=== PATIENT | female | born 1965 | race Caucasian/White ===

== ENCOUNTER → 2020-10-13 13:04 | Outpatient (CLI) | payer OTHER, SELFPAY ==
--- NOTE | ~2020-10-13 | MM_ITS ---
EXAMINATION: MM screening vamsi BI w janee HISTORY: Screening mammogram TECHNIQUE: Craniocaudal and mediolateral oblique 3-D tomosynthesis images were obtained and synthetic 2-D images were generated. CAD analysis was submitted and interpreted. COMPARISON: 01/10/2019 bilateral digital screening mammogram 04/01/2017 bilateral diagnostic digital mammogram 02/14/2015 bilateral digital screening mammogram BREAST PARENCHYMAL COMPOSITION: The breasts are almost entirely fatty. FINDINGS: Bilateral small circumscribed axillary tail lymph nodes. There is no evidence of suspicious mass, calcification, or architectural distortion to suggest malignancy in either breast. There has b een no suspicious interval change. IMPRESSION: 1. No mammographic evidence of malignancy. 2. Recommend routine screening mammography in one year. BI-RADS Category 2: Benign finding(s). Reviewed, dictated and finalized at location A. 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
== END ==
PROVIDERS: PCP Family Medicine Sports Medicine; Visit Provider Nurse Practitioner
DX: Z12.31 Encounter for screening mammogram for malignant neoplasm of breast (principal)
CPT/HCPCS: 77063; 77067

== ENCOUNTER 2022-08-24 11:13 | Day surgery (SDC) | payer OTHER, SELFPAY ==
[2022-08-17 09:20] VITALS: BMI 26.1
[2022-08-24 11:29] VITALS: BP 136/100; PULSE 79; RESP 16; TEMP 36.4; O2SAT 97
--- NOTE | 2022-08-24 11:38 | WPDANESEPPF ---
Anes - Initial Pre Proc Eval Procedure: Operation Date: 08/24/22 12:30 Proposed Procedures p Screening Colonoscopy - Alec Goff MD Date/Time: 08/24/22 11:38 Surgeon: Alec Goff MD Pre Op Diagnosis: NEOPLASM SCREENING Patient Data Age: 56 Gender: F Height: 1.63 m Weight: 67.6 kg Last Vital Signs Temp 36.4 C L 08/24/22 11:29 Pulse 79 08/24/22 11:29 Resp 16 08/24/22 11:29 BP 136/100 H 08/24/22 11:29 Pulse Ox 97 08/24/22 11:29 O2 Del Method Room Air 08/24/22 11:29 Allergies Allergy/AdvReac Type Severity Reaction Status Date / Time No Known Allergies Allergy Unknown Verified 08/24/22 11:28 Home Medications Medication Instructions Recorded Confirmed Type bupropion HCl 150 mg 24 hr tablet, 150 mg PO DAILY 08/17/22 08/24/22 History extended release ergocalciferol (vitamin D2) 1,250 1,250 mcg PO WEEKLY 08/17/22 08/24/22 History mcg (50,000 unit) capsule lisinopril 20 mg tablet 20 mg PO DAILY 08/17/22 08/24/22 History meloxicam 15 mg tablet 15 mg PO DAILY 08/17/22 08/24/22 History Patient hx anesthesia problems: none Family hx anesthesia problems: none Results Review: All pre-operative results and documents have been reviewed as part of the pre-operative evaluation. [facility] Past Medical History Medical History Contact with and (suspected) exposure to environmental tobacco smoke (acute) (chronic) Depression Hypertension Family History Family History Sibling Family history of mental disorder Family history of suicide Patient's brother is Mother Hypertension Family history of heart disease in male family member before age 55 Father Patient's father is in good health Other Family history of cardiovascular disease Family history of chronic obstructive pulmonary disease Family history of malignant neoplasm of thyroid Social History Social History Smoking packs per day: 0.75 Smoking cigarettes per day: 15.0 Years smoked: 30 Smoking pack-years: 22.50 Smoking status: Current every day smoker Tobacco type: cigarettes Second hand tobacco smoke exposure: Yes Smoking end date: 11/14/11 Alcohol intake: current Substance use: never Substance use type: does not use Living arrangements: with family Spiritual care concerns: No Anes - Eval Final PreProcedure Day of Procedure 08/24/22 11:38 Patient weight: normal Heart: regular rate and rhythm Lungs: decreased breath sounds Airway: Mallampati scale class II Neurological: alert and oriented Last oral intake: >/= 8 hours ASA classification: III Emergent: no Anesthetic plan: proceed Anesthesia type and monitoring: general GIVS and standard monitoring Results Review: All pre-operative results and documents have been reviewed as part of the pre-operative evaluation. Informed Consent: The patient's anesthetic plan and its attendant risks and benefits were discussed with the patient/family/POA. Questions were solicited and answers provided to the satisfaction of the patient/family/POA.
[2022-08-24] MEDS: LACTATED RINGERS 1,000 ML 150 ML IV CONT (12:06)
--- NOTE | 2022-08-24 12:12 | PM.HPGS ---
History of Present Illness History of Present Illness Consent: Risks, benefits, and alternatives have been discussed and questions answered. Patient agrees to proceed with procedure. Chief complaint: NEOPLASM SCREENING Narrative: Belkis Johnson is a 56 year old female here for colonoscopy, had colon polyp 5 years ago Review of Systems Constitutional: Constitutional: Denies headache(s) and Denies weakness Eyes: Eyes: Denies blurry vision ENT: Reports Normal hearing present, Denies headache(s) and Denies neck pain Cardiovascular: Cardiovascular: Denies chest pain and Denies dyspnea Respiratory: Respiratory: Denies dyspnea Gastrointestinal: Gastrointestinal: Reports no additional gastrointestinal complaints Genitourinary: Genitourinary: Denies dysuria Musculoskeletal: Musculoskeletal: Denies neck pain Integumentary/Breasts: Skin/Breast: Denies dry skin Neurologic: Reports Normal hearing present, Denies headache(s) and Denies weakness Psychiatric: Psychiatric: Denies anxiety Endocrine: Endocrine: Denies change in body appearance Hematologic/Lymphatic: Hematologic/Lymphatic: Denies easy bleeding Allergic/Immunologic: Allergic/Immunologic: Denies urticaria PMFSH Past Medical History Medical History (Updated 08/24/22 @ 12:12 by Alec Goff MD) Colon polyp Contact with and (suspected) exposure to environmental tobacco smoke (acute) (chronic) Depression Hypertension Family History Family History Sibling Family history of mental disorder Family history of suicide Patient's brother is Mother Hypertension Family history of heart disease in male family member before age 55 Father Patient's father is in good health Other Family history of cardiovascular disease Family history of chronic obstructive pulmonary disease Family history of malignant neoplasm of thyroid Social History Social History Smoking packs per day: 0.75 Smoking cigarettes per day: 15.0 Years smoked: 30 Smoking pack-years: 22.50 Smoking status: Current every day smoker Tobacco type: cigarettes Second hand tobacco smoke exposure: Yes Smoking end date: 11/14/11 Alcohol intake: current Substance use: never Substance use type: does not use Living arrangements: with family Spiritual care concerns: No Meds Home Medications and Allergies Home Medications Medication Instructions Recorded Confirmed Type bupropion HCl 150 mg 24 hr tablet, 150 mg PO DAILY 08/17/22 08/24/22 History extended release ergocalciferol (vitamin D2) 1,250 1,250 mcg PO WEEKLY 08/17/22 08/24/22 History mcg (50,000 unit) capsule lisinopril 20 mg tablet 20 mg PO DAILY 08/17/22 08/24/22 History meloxicam 15 mg tablet 15 mg PO DAILY 08/17/22 08/24/22 History Allergies Allergy/AdvReac Type Severity Reaction Status Date / Time No Known Allergies Allergy Unknown Verified 08/24/22 11:28 Vital Signs Vital Signs - 24 hr 08/24/22 11:29 Temperature 97.5 F L Pulse Rate 79 Respiratory Rate 16 Blood Pressure 136/100 H Pulse Oximetry 97 Oxygen Delivery Room Air Exam Const: General: comfortable and no acute distress HENMT: Face/Nose/Sinus: Normal nares present Eyes: General: appearance normal, both eyes and all related structures Neck: Neck: no JVD Resp: Auscultation: clear to auscultation bilaterally Cardio: Rate: regular rate Rhythm: regular rhythm GI: Inspection: non-distended GI Palp: Yes Soft to palpation Skin: General skin exam: normal color Neuro: General: gait normal Speech: normal speech Extrem: General: normal to inspection Psych: Mental Status: mental status grossly normal Assessment and Plan Assessment and plan (1) Colon polyp: Code(s): K63.5 - Polyp of colon Status: Acute Assessment and Plan: colonosc
[2022-08-24 12:30] VITALS: BP 106/84; PULSE 68; RESP 16; O2SAT 96
[2022-08-24 12:40] VITALS: BP 100/69; PULSE 72; RESP 16; O2SAT 97
--- NOTE | 2022-08-24 12:47 | WPDANESPN ---
Anes - Prog Note Post-Op Date/Time: 08/24/22 12:47 Cardiovascular status: normal Respiratory status: normal Airway patency: baseline Mental status: baseline Post-Op hydration status: normal Vital Signs: Last Vital Signs Temp 36.4 C L 08/24/22 11:29 Pulse 68 08/24/22 12:30 Resp 16 08/24/22 12:30 BP 106/84 08/24/22 12:30 Pulse Ox 96 08/24/22 12:30 O2 Del Method Room Air 08/24/22 12:30 Pain Score (VAS): 0 I/O: Intake & Output 08/23/22 08/24/22 08/24/22 23:59 07:59 15:59 Intake Total 400 Balance 400 Patient Feedback: Patient satisfied with anesthetic care.
[2022-08-24 12:50] VITALS: BP 130/95; PULSE 74; RESP 16
--- NOTE | 2022-08-24 13:04 | SUR.PHASEII ---
1255; PT AWAKE AND ALERT. WALKED TO BATHROOM. GAIT STEADY. DENIES PAIN. DRESSED AND READY TO GO HOME.
== END 2022-08-24 13:03 | disposition home or self-care (01) ==
PROVIDERS: PCP Family Medicine Sports Medicine; Visit Provider Internal Medicine Gastroenterology
PROC: 0DJD8ZZ Inspection of Lower Intestinal Tract, Via Natural or Artificial Opening Endoscopic (ICD-10-PCS; CPT 45378; principal; 2022-08-24 12:30)
DX: Z86.010 Personal history of colon polyps (principal)
CPT/HCPCS: 45385

== ENCOUNTER 2022-08-24 13:00 | Outpatient (NON) | payer OTHER, SELFPAY | END 2022-08-24 13:01 | disposition home or self-care (01) | LOC: ANHLAB 08-25 08:10 | PROVIDERS: PCP Family Medicine Sports Medicine; Visit Provider Internal Medicine Gastroenterology | DX: K63.5 Polyp of colon (principal) | CPT/HCPCS: 88305 ==

== ENCOUNTER → 2023-10-04 07:02 | Outpatient (CLI) | payer OTHER, SELFPAY ==
--- NOTE | ~2023-10-04 | MM_ITS ---
EXAMINATION: MM screening vamsi BI w janee HISTORY: Screening mammogram TECHNIQUE: Craniocaudal and mediolateral oblique 3-D tomosynthesis images were obtained and synthetic 2-D images were generated. CAD analysis was submitted and interpreted. COMPARISON: 10/13/2020, bilateral screening mammogram examinations BREAST PARENCHYMAL COMPOSITION: The breasts are almost entirely fatty. FINDINGS: There is no evidence of suspicious mass, calcification, or architectural distortion to sugg est malignancy in either breast. There has been no suspicious interval change. IMPRESSION: 1. No mammographic evidence of malignancy. 2. Recommend routine screening mammography in one year. BI-RADS Category 1: Negative Reviewed, dictated and finalized at location A. 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
== END ==
PROVIDERS: PCP Nurse Practitioner; Visit Provider Nurse Practitioner
DX: Z12.31 Encounter for screening mammogram for malignant neoplasm of breast (principal)
CPT/HCPCS: 77063; 77067

== ENCOUNTER 2024-03-07 12:58 | Outpatient (CLI) | payer OTHER, SELFPAY ==
--- NOTE | ~2024-03-07 | DEXA_ITS ---
Bone Density Report Name: JOEY GUILLEN Age: 58 Sex: Female Ethnicity: White Date of : 1965 Indication: postmenopausal; screening for osteoporosis; height loss; Referring Provider: GREGORY, HAL Study: Bone densitometry was performed. Exam Date: March 07, 2024 Accession number: [id number] Bone Density: Region BMD T-score Z-score Classification AP Spine (L1-L4) 0.886 -1.5 -0.1 Osteopenia Femoral Neck (Left) 0.621 -2.1 -0.8 Osteopenia Total Hip (Left) 0.735 -1.7 -0.8 Osteopenia Femoral Neck (Right) 0.625 -2.0 -0.8 Osteopenia Total Hip (Right) 0.723 -1.8 -0.9 Osteopenia Total Hip Mean 0.729 -1.8 -0.9 Osteopenia World Health Organization criteria for BMD impression classify patients as: Normal (T-score at or above -1.0), Osteopenia (T-score between -1.0 and -2.5), or Osteoporosis (T-score at or below -2.5). 10-year Fracture Risk(1): Major Osteoporotic Fracture 9.8% Hip Fracture 2.1% Reported Risk Factors: [place] (), Neck BMD=0.621, BMI=26.2, smoking (1) FRAX(R) Version 3.08. Fracture probability calculated for an untreated patient. Fracture probability may be lower if the patient has received treatment. Previous Exams: Region Exam Age BMD T-score BMD Change BMD Change Date g/cm2 vs Baseline vs Previous AP Spine(L1-L4) 03/07/2024 58 0.886 -1.5 -0.077* -0.077* 04/01/2017 51 0.963 -0.8 Total Hip(Left) 03/07/2024 58 0.735 -1.7 -0.109* -0.109* 04/01/2017 51 0.844 -0.8 Total Hip(Right) 03/07/2024 58 0.723 -1.8 -0.097* -0.097* 04/01/2017 51 0.820 -1.0 *Denotes significance at 95% confidence level, LSC for AP Spine = 0.022 g/cm2, LSC for Total Hip = 0.027 g/cm2 Clinical Information Provided by Patient: Smokes Has used the following medications: Vitamin D Patient maximum height was 64.0 Menopause Age: 44 Drinks caffeinated beverages Onset of menses at age 9 Number of children 2 Impression: The patient has low bone mass, based on the Left Femoral Neck T-score. The patient has an estimated ten-year risk of hip fracture of 2.1% and an estimated ten-year risk of major fracture of 9.8%, based on the WHO FRAX algorithm. The patient has risk factors, including: smoking. The BMD for the AP Spine(L1-L4) decreased, changing by -0.077 since the last DXA exam. The BMD for the Total Hip(Left) decreased, changing by -0.109 since the last DXA exam. The BMD for the
== END 2024-03-07 12:59 ==
PROVIDERS: PCP Family Medicine; Visit Provider Nurse Practitioner
DX: M85.88 Other specified disorders of bone density and structure, other site (principal); M85.852 Other specified disorders of bone density and structure, left thigh; M85.851 Other specified disorders of bone density and structure, right thigh
CPT/HCPCS: 77080

== ENCOUNTER 2024-08-14 15:14 | Emergency (ER) | payer OTHER, SELFPAY ==
--- NOTE | ~2024-08-14 | XR_ITS ---
EXAMINATION: XR chest 2V Exam Date/Time: 08/14/2024 17:40 CDT HISTORY: cough, sob Comparison: 11/15/2006. RESULT: Lines, tubes, and devices: None. Lungs and pleura: Hemidiaphragm flattening. Streaky and patchy subsegmental left basilar airspace di sease. Cardiomediastinal silhouette: Stable. Other: No acute osseous or upper abdominal finding. IMPRESSION: Subsegmental left basilar atelectasis/consolidation. Emphysematous change. Reviewed, dictated and finalized at location K.
[2024-08-14 15:16] VITALS: BP 136/98; PULSE 72; RESP 16; TEMP 36.6; O2SAT 92
--- NOTE | 2024-08-14 17:15 | ED.SOB ---
HPI - SOB/Dyspnea General Chief Complaint: Shortness of Breath/Dyspnea <Eugenie Finnegan PA-C - Last Filed: 08/15/24 09:37> Stated Complaint: Shortness of breath <Eugenie Finnegan PA-C - Last Filed: 08/15/24 09:37> Time Seen by Provider: 08/14/24 17:15 <Eugenie Finnegan PA-C - Last Filed: 08/15/24 09:37> Focused HPI: This is a 58 year old female that presents to the ER for cold symptoms. Ongoing over the last 4 days. Reports cough, congestion, headache. Reports she has been short of breath. Her primary wanted her to be seen in the ER. Denies fevers. GENERAL: Well-appearing, well-nourished, and in no acute distress. HEAD: Normocephalic, atraumatic. CHEST: Clear to auscultation. ?No respiratory distress. HEART: Regular rate and rhythm.? NEURO: ?Alert and oriented x3. Patient screened in triage and initial orders placed.? ?Additional care and disposition to be based upon?diagnostic testing and treatment. <Eugenie Finnegan PA-C - Last Filed: 08/15/24 09:37> History of Present Illness HPI Narrative: 58-year-old female presents to the ED for URI symptoms for 4 days. Patient states her symptoms started 4 days ago with sinus congestion and now moved into her chest. She is reporting a cough, chest congestion and states she felt short of breath today. She took her pulse oximetry at home and said it was around 86%. She contacted her PCP and was advised to come to the ED for further evaluation. In triage the patient received a DuoNeb and states that she feels significantly better. She denies chest pain, lower extremity edema, fever, N/V/D, abdominal pain. Denies history of cardiac disease, VTE, hemoptysis, recent surgery or hospitalization. States she was recently diagnosed with COPD but is not currently on any medications for this. She smokes 1 pack per day for 45 years. <Sarah Beth Ann PA-C - Last Filed: 08/14/24 21:55> Related Data Home Medications: Home Medications Medication Instructions Recorded Confirmed bupropion HCl 150 mg 24 hr tablet, 150 mg PO DAILY 08/17/22 08/24/22 extended release ergocalciferol (vitamin D2) 1,250 1,250 mcg PO WEEKLY 08/17/22 08/24/22 mcg (50,000 unit) capsule lisinopril 20 mg tablet 20 mg PO DAILY 08/17/22 08/24/22 meloxicam 15 mg tablet 15 mg PO DAILY 08/17/22 08/24/22 <Eugenie Finnegan PA-C - Last Filed: 08/15/24 09:37> Allergies/Adverse Reactions: Allergies Allergy/AdvReac Type Severity Reaction Status Date / Time No Known Allergies Allergy Unknown Verified 08/24/22 11:28 <Eugenie Finnegan PA-C - Last Filed: 08/15/24 09:37> Review of Systems Review of Systems: All systems reviewed & are unremarkable except as noted in HPI and below <Sarah Beth Ann PA-C - Last Filed: 08/14/24 21:55> [facility] Past Medical History Medical History: Medical History Colon polyp Contact with and (suspected) exposure to environmental tobacco smoke (acute) (chronic) Depression Hypertension <Eugenie Finnegan PA-C - Last Filed: 08/15/24 09:37> Family History Family History: Family History Sibling Family history of mental disorder Family history of suicide Patient's brother is Mother Hypertension Family history of heart disease in male family member before age 55 Father Patient's father is in good health Other Family history of cardiovascular disease Family history of chronic obstructive pulmonary disease Family history of malignant neoplasm of thyroid <Eugenie Finnegan PA-C - Last Filed: 08/15/24 09:37> Social History Social History: Social History Smoking packs per day: 0.75 Smoking cigarettes per day: 15.0 Years smoked: 30 Smoking pack-years: 22.50 Smoking status: Current every day smoker Tobacco type: cigarettes Second
--- NOTE | 2024-08-14 17:16 | ECG_ITS ---
Test Date: 2024-08-14 20:16:04 Measurements Intervals [place] Rate: 56 P: 50 MA: 165 QRS: 28 QRSD: 108 T: 66 QT: 475 QTc: 459 Interpretive Statements SINUS BRADYCARDIA SEPTAL MYOCARDIAL INFARCTION , OF INDETERMINATE AGE [40+ ms Q WAVE IN V1/V2] ABNORMAL ECG No previous ECG available for comparison Electronically Signed On 08-15-2024 13:49:49 CDT by Darek Castro M.D.
[2024-08-14] MEDS: IPRATROPIUM 0.5 MG/ALBUTEROL SULFATE 2.5 MG AMPUL.NEB 3 ML INHALATION (17:36)
[2024-08-14 17:38] VITALS: PULSE 63; RESP 20
[2024-08-14 18:24] LABS: Basophils Percent Auto 0.4 % (0.2-1.2); Eosinophils Absolute Auto 0.1 K/mm3 (0-0.3); Eosinophils Percent Auto 1.1 % (0-4.4); Hematocrit 45.6 % (37.0-47.0); Hemoglobin 15.3 g/dL (12.0-15.0); Immature Granulocyte Absolute 0.02 K/mm3 (0.00-0.031); Immature Granulocyte Percent A 0.2 % (0-0.5); Lymphocytes Absolute Auto 1.85 K/mm3 (0.9-3.2); Lymphocytes Percent Auto 22.2 % (18.3-44.2); Mean Corpuscular HGB Conc 33.6 g/dl (32-36); Mean Corpuscular Hemoglobin 32.5 pg (26-34); Mean Corpuscular Volume 96.8 fl (80-100); Mean Platelet Volume 10.1 fl (7.4-10.4); Monocytes Absolute Auto 0.6 K/mm3 (0.1-0.6); Monocytes Percent Auto 6.7 % (2.6-8.5); Neutrophils Absolute Auto 5.8 K/mm3 (1.3-6.7); Neutrophils Percent Auto 69.4 % (45.5-73.1); Platelet Count Result 159 k/mm3 (150-375); Red Blood Count 4.71 M/mm3 (4.2-5.4); White Blood Count 8.3 K/mm3 (4.5-10.0)
[2024-08-14 18:33] LABS: Anion Gap 7 mmol/L (4-12); Blood Urea Nitrogen 12 mg/dL (7-17); Calcium 8.8 mg/dL (8.4-10.2); Carbon Dioxide 25 mmol/L (22-30); Chloride 103 mmol/L (98-107); Estimated CRCL calculation 84 ml/min; Estimated Glomerular Filt Rate > 60; Glucose 93 mg/dL (65-110); Potassium 4.1 mmol/L (3.4-5.0); Sodium 135 mmol/L (137-145)
[2024-08-14 19:01] LABS: Influenza A QL RT-PCR Negative (Negative); Influenza B QL RT-PCR Negative (Negative); RSV RNA, RT-PCR Negative (Negative); SARS-CoV-2 RNA PCR Negative (Negative)
[2024-08-14 19:55] VITALS: BP 112/89; PULSE 56; RESP 16; TEMP 36.5; O2SAT 92
[2024-08-14 21:41] VITALS: O2SAT 93
[2024-08-14] MEDS: AMOXICILLIN/CLAVULANATE K 875-125 MG TAB 1 TABLET PO (21:47)
[2024-08-14] MEDS: AZITHROMYCIN 250 MG TABLET 500 MG PO (21:47)
[2024-08-14] MEDS: predniSONE 20 MG TABLET 60 MG PO (21:47)
[2024-08-14 21:49] VITALS: BP 152/84; PULSE 73; RESP 14; O2SAT 92
== END 2024-08-14 22:09 | disposition home or self-care (01) ==
PROVIDERS: Physician Assistant; Emergency Provider Physician Assistant; PCP Family Medicine
DX: J18.9 Pneumonia, unspecified organism (principal); J44.1 Chronic obstructive pulmonary disease with (acute) exacerbation; Z20.822 Contact with and (suspected) exposure to COVID-19; I10 Essential (primary) hypertension; F32.A Depression, unspecified; Z86.0100 Personal history of colon polyps, unspecified; Z87.891 Personal history of nicotine dependence; R94.31 Abnormal electrocardiogram [ECG] [EKG]; R00.1 Bradycardia, unspecified
CPT/HCPCS: 36415; 71046; 80048; 85025; 87637; 93005; 94640; 99283; A9270; J7512

== ENCOUNTER 2024-10-09 08:40 | Outpatient (CLI) | payer OTHER, SELFPAY ==
--- NOTE | ~2024-10-09 | MMUS_ITS ---
EXAMINATION: MM diagnostic vamsi BI w janee, US breast LT limited HISTORY: Palpable left breast abnormality TECHNIQUE: Additional 3-D tomosynthesis images of the breasts were performed and synthetic 2-D images were generated. CAD analysis was submitted and interpreted. High resolution Limited left breast ultr asound was performed. COMPARISON: Comparison to multiple prior studies sequentially, with oldest reviewed study dated 01/2015. BREAST PARENCHYMAL COMPOSITION: Not dense: There are scattered areas of fibroglandular density. FINDINGS: MAMMOGRAPHIC FINDINGS: There are no suspicious masses, calcifications or architectural distortion in either breast to sugges t malignancy. ULTRASOUND: Limited left breast ultrasound: Normal heterogeneous echotexture without focal solid or cystic mass. IMPRESSION: 1. No evidence for malignancy in either breast. 2. Routine yearly screening mammogram and regular clinical breast examination are recommended. BI-RADS Category 1: Negative Reviewed, dictated and finalized at location B. 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 No evidence for malignancy in either breast. 2. Routine yearly screening mammogram and regular clinical breast examination a re recommended. BI-RADS Category 1: Negative
== END 2024-10-09 08:41 | disposition home or self-care (01) ==
LOC: MICIMG 08:41
PROVIDERS: PCP Family Medicine; Visit Provider Nurse Practitioner
DX: N63.20 Unspecified lump in the left breast, unspecified quadrant (principal); R92.8 Other abnormal and inconclusive findings on diagnostic imaging of breast
CPT/HCPCS: 76642; 77062; 77066; G0279

== ENCOUNTER 2025-07-19 15:07 | Outpatient (CLI) | payer OTHER, SELFPAY ==
--- NOTE | ~2025-07-19 | US_ITS ---
EXAMINATION: US pelvic complete DATE: 07/19/2025 15:23 INDICATION: Pelvic pain. TECHNIQUE: Multiple transabdominal sonographic images of the pelvis were obtained. COMPARISON: None. FINDINGS: The uterus measures 6.4 x 3.0 x 4.3 cm. There is no free fluid in the pelvis. The endometrial complex measures 3 mm in thickness. The ovaries are not visualized. IMPRESSION: 1. Normal uterus. Ovaries not visualized. Reviewed, dictated and finalized at location E.
== END 2025-07-19 15:08 | disposition home or self-care (01) ==
LOC: MICIMG 15:08
PROVIDERS: PCP Family Medicine
DX: R10.2 Pelvic and perineal pain (principal)
CPT/HCPCS: 76856

== ENCOUNTER 2025-08-19 15:00 | Outpatient (CLI) | payer OTHER, SELFPAY ==
--- NOTE | ~2025-08-19 | US_ITS ---
EXAMINATION: US transvaginal INDICATION: Pelvic pain. Post menopausal Comparison:07/19/2025 TECHNIQUE: Multiple transabdominal and endovaginal sonographic images of the pelvis performed. FINDINGS: The uterus measures 4.2 x 2.6 x 4.1. The endometrial complex measures 2 mm. There is a 0.8 x 0.7 x 0.7 cm heterogeneous mass in the endometrium near the fundus of the uterus. Differential includes an endometrial polyp, endometrial hyperplasia or endometrial cancer. Ovaries are not identified. Large amount of bowel in the pelvis which limits evaluation. There is no free fluid in the pelvis. There are no abnormal masses seen on either side. IMPRESSION: 1. There is a 0.8 x 0.7 x 0.7 cm heterogeneous mass in the endometrium near the fundus of the uterus. Differential includes an endometrial polyp, endometrial hyperplasia or endometrial cancer. 2. Ovaries were not visualized. Reviewed, dictated and finalized at location Q.
== END 2025-08-19 15:01 | disposition home or self-care (01) ==
LOC: MICIMG 15:01
PROVIDERS: PCP Family Medicine; Visit Provider Obstetrics & Gynecology Gynecology
DX: R10.20 Pelvic and perineal pain unspecified side (principal)
CPT/HCPCS: 76830

== ENCOUNTER 2025-09-16 02:19 | Day surgery (SDC) | payer OTHER, SELFPAY ==
--- NOTE | 2025-09-10 16:23 | SUR.PREOP ---
[facility] has started construction of its new state of the art ER which will open Spring 2026. With this, we anticipate parking may be a challenge for some our surgical patients and families. Parking spaces are limited but are available for all Surgical, obstetrics, and ER patients sharing this lot. If you arrive and find you are having a hard time finding a parking space, please note that we understand the challenges, please drive around the hospital and park near Hospital Entrance 1. When you enter this entrance, you can ask a volunteer to direct or take you back to the surgical waiting area to check in. We appreciate everyone?s understanding of these expected challenges while we build for your future. Report to the Outpatient Waiting Room, entrance under the green pavilion located off [address], at time _915AM__ on date _09/16/25___. Planned Procedure Time: _1115AM__.? Time changes happen often and if your time is changed the preop area will call you the afternoon before. - You and your visitor will be asked to self-screen and do not enter if you have any COVID symptoms. Please call surgeon if you need to reschedule. - A mask is optional within the hospital at this time. Patients may have clear liquids (water, carbonated beverages, clear teas, apple juice) until 3 hours prior to surgery with a maximum of 20 ounces. - No food from midnight until time of surgery and no smoking, or chewing tobacco (or any form of nicotine). No chewing gum, candy or mints. Take only the following medications with a SIP of water on the morning of surgery: _buproprion DO NOT STOP ANY OF YOUR OTHER PRESCRIPTION MEDICATIONS PRIOR TO SURGERY EXCEPT THE FOLLOWING Hold all vitamins and supplements for 3 days per anesthesiologist. Medications to discontinue per physician ____n/a Date to take last dose of multivitamins___09/12/25 Please no make-up, nail greek, hairspray, perfume, deodorant, or body powder the day of surgery.? No jewelry (including any body piercings) or valuables the day of surgery, leave them at home.? Please take a shower or bath the night before, or the morning of, surgery with an antibacterial soap.? Wear comfortable, loose fitting clothing.? - Jewelry must be removed prior to entering the operating room.? Rings and piercings that are not removed may be cut off. - The hospital will not accept responsibility for valuables.? - Please leave all valuables, including medications, at home the day of surgery. If you are going home after surgery, a licensed double bottom driver must drive you home.? - NO public transportation without another adult if you receive anesthesia. - We recommend that an adult stay with you for 24 hours following discharge. - We also recommend that you do not drive, make important decision, drink alcoholic beverages, or take any drugs that were not prescribed by your health care provider for at least 24 hours after your discharge time. Follow any additional instructions given to you from your surgeon. Telephone instructions given to __Belkis___and asked if any additional questions and then verbalized understanding. Patient advised to call surgeon office or pre surgery nurse liaison [phone] if any additional questions.
[2025-09-10 16:36] VITALS: BMI 24.5
--- OUTSIDE RECORDS SUMMARY | 2025-09-16 02:22 | XMS_ITS | Encounter Summary ---
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
--- OUTSIDE RECORDS SUMMARY | 2025-09-16 02:22 | XMS_ITS | Clinical Summary ---
Author Organization [facility] [employer] Address [address] 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 This disclosure is being madepursuant to the Care Everywhere program and may not contain all information available regarding this patient. Last updated 18.[employer] Allergies No known active allergies Medications * Be aware that medications may not be up to date on this document. Alwaysverify current medications with the patient. No known medications Social History Tobacco Use Types Packs/Day Years Used Date Smoking Tobacco: Every Day Cigarettes Smokeless Tobacco: Never Comments No Sex and Gender Information Value Date Recorded Sex Assigned at Not on file Legal Sex Female 6:26 AM ELECTRICAL TESTER Gender Identity Not on file Sexual Orientation Not on file Last Filed Vital Signs Vital Sign Reading Time Taken Comments Blood Pressure 148/96 10/16/2018 11:19 AM ELECTRICAL TESTER Pulse 74 10/16/2018 11:19 AM ELECTRICAL TESTER Temperature 36.5 C (97.7 F) 10/16/2018 11:19 AM ELECTRICAL TESTER Respiratory Rate 16 10/16/2018 11:19 AM ELECTRICAL TESTER Oxygen Saturation 96% 10/16/2018 11:19 AM ELECTRICAL TESTER Inhaled Oxygen Concentration - - Weight 65.8 kg (145 lb) 10/16/2018 11:19 AM ELECTRICAL TESTER Height 160 cm (5' 3) 10/16/2018 11:19 AM ELECTRICAL TESTER Body Mass Index 25.69 10/16/2018 11:19 AM ELECTRICAL TESTER Plan of Treatment Health Maintenance Due Date Last Done Comments COLOGUARD (AGES 45-75) - COL ON CA SCREENING 1964 COLON MONITORING 1964 COLONOSCOPY - COLON CA SCREENING 1964 CT COLONOGRAPHY - COLON CA SCREENING 1964 Colorectal Cancer Screening 1964 FIT - COLON CA SCREENING 1964 FLEX SIG - COLON CA SCREENING 1964 LIPID TESTING 1964 MAMMOGRAM 1964 HIV SCREENING 1979 HEPATITIS C SCREENING 10/24/1982 DTAP/TDAP/TD VACCINES (1 - Tdap) 1983 PNEUMOCOCCAL VACCINE 50+ (1 of 1 - PCV) 2014 ZOSTER VACCINE (1 of 2) 2014 SCREENING FOR DIABETES 10/16/2018 DEPRESSION SCREENING 11/14/2024 COVID-19 VACCINE (1 - 2023-2 5 season) 2025 INFLUENZA VACCINE (#1) 2025 Respiratory Syncytial Virus (RSV) Vaccine Pt: or over 60 yrs (1 - 1-dose 75+ series) 2039 HEPATITIS B VACCINE Aged Out No longe r eligible based on patient's age to complete this topic HIB VACCINE Aged Out No longer eligi ble based on patient's age to complete this topic HPV VACCINE Aged Out No longer eligi ble based on patient's age to complete this topic MENINGOCOCCAL (Group B) VACC INE SHARED DECISION-MAKING Aged Out No longer eligibl e based on patient's age to complete this topic MENINGOCOCCAL GROUPS A/C/Y/W VACCINE Aged Out No longer eligible b ased on patient's age to complete this topic Insurance [employer]
--- OUTSIDE RECORDS SUMMARY | 2025-09-16 02:22 | XMS_ITS | Clinical Summary ---
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
--- OUTSIDE RECORDS SUMMARY | 2025-09-16 02:22 | XMS_ITS | Clinical Summary ---
Author Organization [facility] Address [address] [place] [address] Care Team Providers Care Manager Developmental Name Role Phone Eyad Arambula MD Primary Care Provider [phone] Allergies No known active allergies Medications No known medications Social History Tobacco Use Types Packs/Day Years Used Date Smoking Tobacco: Every Day Cigarettes Smokeless Tobacco: Never Tobacco Cessation:Ready to Q uit: Not Asked; Counseling Given: Not Answered Alcohol Use Standard Drinks/Week Comments Never 0 (1 standard drink = 0.6 oz pur e alcohol) Comments No Sex and Gender Information Value Date Recorded Sex Assigned at Not on file Legal Sex Female 2:42 PM HOUSEKEEPING MANAGER Gender Identity Not on file Sexual Orientation Not on file Last Filed Vital Signs Vital Sign Reading Time Taken Comments Blood Pressure 145/75 09/30/2023 6:33 PM HOUSEKEEPING MANAGER Pulse 71 09/30/2023 6:33 PM HOUSEKEEPING MANAGER Temperature 37 C (98.6 F) 09/30/2023 2:48 PM HOUSEKEEPING MANAGER Respiratory Rate 16 09/30/2023 6:33 PM HOUSEKEEPING MANAGER Oxygen Saturation 100% 09/30/2023 6:33 PM HOUSEKEEPING MANAGER Inhaled Oxygen Concentration - - Weight 68.9 kg (151 lb 14.4 oz) 09/30/2023 2:48 PM HOUSEKEEPING MANAGER Height 160 cm (5' 3) 09/30/2023 2:48 PM HOUSEKEEPING MANAGER Body Mass Index 26.91 09/30/2023 2:48 PM HOUSEKEEPING MANAGER Plan of Treatment Health Maintenance Due Date Last Done Comments Cervical Cancer Screening Pap Smear (Age 30 to 64) Every 3 Years 1964 Colorectal Cancer Screening Colonoscopy (10 Years) 1964 Annual Physical 1967 Hepatitis C 1982 DTaP, Tdap and Td Vaccines (1 - Tdap) 1983 Cervical Cancer Screening Pap with HPV Testing (Age 30 to 64) Every 5 Years 1994 Cervical Cancer Screening with HPV 1994 Mammogram Screening 2004 Pneumococcal Vaccine: 50+ Years (2 of 2 - PCV) 11/08/2022 11/08/2021 COVID-19 Vaccine ( - season) 2025 08/06/2023, 09/13/2021, 12/16/2020, Additional history exists Influenza Adult (#1) 2025 08/06/2023, 08/22/2022, 10/18/2021 RSV Immunization or 60+ Years (1 - 1-dose 75+ series) 2039 Zoster Vaccines Completed 08/22/2022, 12/06/2021 Hepatitis A Vaccines Aged Out No long er eligible based on patient's age to complete this topic Meningococcal B Vaccine Aged Out No l onger eligible based on patient's age to complete this topic Meningococcal Vaccine Aged Out No kiara alysa eligible based on patient's age to complete this topic RSV Immunizations Under 20 Months Aged Out No longer eligible based on patient's age to complete this topic Insurance [facility] Care Teams Manager Developmental Relationship Specialty Start Date End Date Eyad Arambula MD [address] [place] [address] PCP - General FAMILY PRACTICE 09/30/23
--- NOTE | 2025-09-16 07:52 | P.HP_ITS ---
History of Present Illness History of Present Illness Consent: Risks, benefits, and alternatives have been discussed and questions answered. Patient agrees to proceed with procedure. Chief complaint: endometrial mass Narrative: Belkis Johnson is a 59 year old female underwent pelvic ultrasound for pelvic pain. A 0.8cm heterogeneous mass was noted in the endometrium. It was recommended to undergo D&C hysteroscopy for further evaluation. Patient denies vaginal bleeding or continued pain. Risks of infection, bleeding, perforation, and possible pathology are reviewed. Patient voices understanding and agrees to proceed. Review of Systems Review of Systems: not repeated day of surgery; patient states no changes in status [facility] Past Medical History Medical History (Updated 09/16/25 @ 07:56 by Danielle May MD) Elevated cholesterol Restless leg syndrome Colon polyp Contact with and (suspected) exposure to environmental tobacco smoke (acute) (chronic) Hypertension Depression Surgical History Surgical History (Updated 09/16/25 @ 07:56 by Danielle May MD) History of bilateral tubal ligation 1989 with 2nd Status post cholecystectomy Open 1987 History of Rangel urethropexy 2004 History of X2 Family History Family History Sibling Family history of mental disorder Family history of suicide Patient's brother is Mother Hypertension Family history of heart disease in male family member before age 55 Father Patient's father is in good health Other Family history of cardiovascular disease Family history of chronic obstructive pulmonary disease Family history of malignant neoplasm of thyroid Social History Social History (Updated 05/09/25 @ 08:06 by Antoinette Pretty WEIGHTER) Smoking packs per day: 0.75 Smoking cigarettes per day: 15.0 Years smoked: 45 Smoking pack-years: 33.75 Smoking status: Current every day smoker Tobacco type: cigarettes Second hand tobacco smoke exposure: Yes Smoking end date: 11/14/11 Alcohol intake: current Substance use: current Substance use type: marijuana Other substance usage details: 1 gummy a night Do You Feel Safe in your Home?: Yes Lack of Transportation: No Lack of Food: Never True Current Housing: I Have Housing Concerned About Future Housing: No Difficulty Paying Gas/Electric Bills: No Difficulty Paying for Meds: No Currently Unemployed: No Education: Trade/Vocational Certificate Difficulty w/ Childcare or Family Care: No Living arrangements: with family Spiritual care concerns: No Meds Home Medications and Allergies Home Medications ?Medication ?Instructions ?Recorded ?Confirmed ?Type ergocalciferol (vitamin D2) 1,250 1,250 mcg PO WEEKLY 08/17/22 09/10/25 History mcg (50,000 unit) capsule lisinopril 20 mg tablet 20 mg PO DAILY 08/17/2208/15 History ezetimibe 10 mg tablet 10 mg PO DAILY 02/06/2508/15 History oxybutynin chloride 10 mg 10 mg PO BID 02/06/25 History tablet,extended release 24 hr bupropion HCl 150 mg tablet,12 hr 150 mg PO DAILY 04/1509/10/25 History sustained-release (Wellbutrin SR) calcium 500 mg tablet 500 mg PO DAILY 09/10/25 History cyanocobalamin (vitamin B-12) 1,000 mcg PO DAILY 09/1009/10/25 History 1,000 mcg tablet (Vitamin B-12) Allergies Allergy/AdvReac Type Severity Reaction Status Date / Time No Known Allergies Allergy Unknown Verified 09/10/25 16:25 Exam Const: General: healthy appearing and alert Orientation/consciousness: patient oriented x3 Resp: Effort & Inspection: normal respiratory effort : External Female Exam: normal external appearance Speculum Exam - Vagina: normal appearance of the vagina and normal vaginal discharge Speculum Exam - Cervix: normal appearance of the cervix Bimanual exam- vagina & uterus: uterine size normal and consistency normal Bimanual Exam- Adnexa, other: normal adnexae and No adnexal tenderness Neuro: General: patient oriented x3 Assessment and Plan Assessment and plan (1) Endometrial mass: Code(s): N94.89 - Other specified conditions associated with female genital organs and menstrual cycle Status: Acute Assessment and Plan: Plan to proceed with D&C hysteroscopy
--- NOTE | 2025-09-16 07:52 | WPDHPUPDATE1 ---
History and Physical Update Update Date/Time: 09/16/25 07:52 History and Physical has been reviewed, including an updated exam of the patient. There are NO changes in the patient's condition. Risks, benefits, and alternatives have been discussed and questions answered. Patient agrees to proceed with procedure.
[2025-09-16 09:10] VITALS: BP 156/85; PULSE 60; TEMP 36.4; O2SAT 97; BMI 24.5
[2025-09-16] MEDS: ACETAMINOPHEN 500 MG TABLET 1000 MG PO (09:17)
[2025-09-16] MEDS: LACTATED RINGERS 1,000 ML 30 ML IV CONT (09:25)
--- NOTE | 2025-09-16 09:53 | WPDANESEPPF ---
Anes - Initial Pre Proc Eval Procedure: Operation Date: 09/16/25 11:15 Proposed Procedures p Hysteroscopy, Dilation and Curettage - Danielle May MD Date/Time: 09/16/25 09:53 Surgeon: Danielle May MD Pre Op Diagnosis: endometrial mass Patient Data Age: 59 Gender: F Height: 1.63 m Weight: 65 kg Allergies Allergy/AdvReac Type Severity Reaction Status Date / Time No Known Allergies Allergy Unknown Verified 09/16/25 09:26 Home Medications ?Medication ?Instructions ?Recorded ?Confirmed ?Type ergocalciferol (vitamin D2) 1,250 1,250 mcg PO WEEKLY 08/17/22 09/16/25 History mcg (50,000 unit) capsule lisinopril 20 mg tablet 20 mg PO DAILY 08/17/22 09/10/25 History ezetimibe 10 mg tablet 10 mg PO DAILY 02/06/25 09/10/25 History oxybutynin chloride 10 mg 10 mg PO BID 02/06/25 09/10/25 History tablet,extended release 24 hr bupropion HCl 150 mg tablet,12 hr 150 mg PO DAILY 05/09/25 09/10/25 History sustained-release (Wellbutrin SR) calcium 500 mg tablet 500 mg PO DAILY 09/10/25 09/16/25 History cyanocobalamin (vitamin B-12) 1,000 mcg PO DAILY 09/10/25 09/16/25 History 1,000 mcg tablet (Vitamin B-12) Patient hx anesthesia problems: none Family hx anesthesia problems: none Results Review: All pre-operative results and documents have been reviewed as part of the pre-operative evaluation. [facility] Past Medical History Medical History Elevated cholesterol Restless leg syndrome Colon polyp Contact with and (suspected) exposure to environmental tobacco smoke (acute) (chronic) Hypertension Depression Surgical History Surgical History History of bilateral tubal ligation 1989 with 2nd Status post cholecystectomy Open 1987 History of Rangel urethropexy 2004 History of X2 Family History Family History Sibling Family history of mental disorder Family history of suicide Patient's brother is Mother Hypertension Family history of heart disease in male family member before age 55 Father Patient's father is in good health Other Family history of cardiovascular disease Family history of chronic obstructive pulmonary disease Family history of malignant neoplasm of thyroid Social History Social History Smoking packs per day: 0.75 Smoking cigarettes per day: 15.0 Years smoked: 45 Smoking pack-years: 33.75 Smoking status: Current every day smoker Tobacco type: cigarettes Second hand tobacco smoke exposure: Yes Smoking end date: 11/14/11 Alcohol intake: current Substance use: current Substance use type: marijuana Other substance usage details: 1 gummy a night Do You Feel Safe in your Home?: Yes Lack of Transportation: No Lack of Food: Never True Current Housing: I Have Housing Concerned About Future Housing: No Difficulty Paying Gas/Electric Bills: No Difficulty Paying for Meds: No Currently Unemployed: No Education: Trade/Vocational Certificate Difficulty w/ Childcare or Family Care: No Living arrangements: with family Spiritual care concerns: No Anes - Eval Final PreProcedure Day of Procedure 09/16/25 09:53 Patient weight: normal Heart: regular rate and rhythm Lungs: decreased breath sounds Airway: Mallampati scale class II Neurological: alert and oriented Last oral intake: >/= 8 hours ASA classification: III Emergent: no Anesthetic plan: proceed Anesthesia type and monitoring: general GIVS and standard monitoring Results Review: All pre-operative results and documents have been reviewed as part of the pre-operative evaluation. Informed Consent: The patient's anesthetic plan and its attendant risks and benefits were discussed with the patient/family/POA. Questions were solicited and answers provided to the satisfaction of the patient/family/POA.
--- NOTE | 2025-09-16 10:55 | S_PTH ---
PATIENT: Belkis Johnson LOC: [facility] U#:[id number] AGE/SX: 59/F ROOM: RE09/16/[address]: Danielle May MD : 1965 BED: DIS: 09/16/2025 SPEC #: [id number] RECD: 09/16/25 12:44 STATUS: LUDA REAndre #: [id number] BRAD: 09/16/25 10:[address]: Dainelle May DEPT: [facility] Surgical RECD BY: Mabel Soares ENTERED: 09/16/25 12:45 SP TYPE: Surgical OTHR DR: Eyad Arambula, Tissues: A - Endometrial Curettings Procedures: Hematoxylin and Eosin Stain Gross and Microscopic Level 4
[2025-09-16] MEDS: KETOROLAC 15 MG/ML VIAL (*BKC) IV PUSH (10:56)
[2025-09-16 11:03] VITALS: BP 122/77; PULSE 57; RESP 16; O2SAT 98
--- NOTE | 2025-09-16 11:04 | P.OP_ITS ---
Procedure Note - Detailed Date of Procedure 09/16/25 Pre-op Diagnosis endometrial mass Post-op Diagnosis Same Procedure Performed D&C hysteroscopy Surgeon Danielle May MD Anesthesia MAC Findings The uterus sounds to 6cm. There was a fibroid noted at the right cornua. Description of Procedure The patient was taken to the operating room and placed under anesthesia in the dorsal lithotomy position. She was prepped and draped in the usual sterile fashion. Woodacre speculum was placed in the vagina and the cervix grasped on the anterior lip with tenaculum. The uterus is sounded to 6cm. The diagnostic hysteroscope was placed and with the above-stated findings the small Aveta resection device is opened and placed. The fibroid is removed in its entirety. The remainder of the endometrium appears grossly atrophic. The endometrium was curetted with a sharp curette until a good uterine cry was noted in all areas. Instruments are removed. Sponge, needle, and instrument counts are correct per the OR staff. The patient was taken to recovery in stable condition. Estimated Blood Loss 5 Drains No Packing No Pathology Yes (Endometrial curettings and shavings) Complications No immediate complications Condition Stable Disposition PACU
[2025-09-16 11:30] VITALS: BP 122/75; PULSE 53; RESP 16
== END 2025-09-16 11:42 | disposition home or self-care (01) ==
PROVIDERS: PCP Family Medicine; Visit Provider Obstetrics & Gynecology Gynecology
PROC: 0U5B8ZZ Destruction of Endometrium, Via Natural or Artificial Opening Endoscopic (ICD-10-PCS; CPT 58563; principal; 2025-09-16 11:15)
DX: N85.8 Other specified noninflammatory disorders of uterus (principal)
CPT/HCPCS: 58558; 88305; A9270; J1885; J2250; J2704; J3010; J7120